=== PATIENT | female | born 2000 | race Caucasian/White ===

== ENCOUNTER 2021-10-06 04:23 | Emergency (ER) | payer BC ==
[2021-10-06 04:51] LABS: HEMOGLOBIN 13.6 gm/dl (12.3-15.3); RED BLOOD COUNT 4.81 M/UL (4.00-5.10); WHITE BLOOD COUNT 12.3 K/UL (4.5-11.0)
[2021-10-06 05:15] LABS: BUN/CREATININE RATIO 13 (0-10)
[2021-10-06] MEDS ORDERED: PROTONIX 40 MG40 M1 PO (08:34)
== END 2021-10-06 10:25 | disposition home or self-care (01) ==
LOC: ER1 04:23
PROVIDERS: Family Medicine
DX: K59.00 Constipation, unspecified (principal); K76.9 Liver disease, unspecified
CPT/HCPCS: 80053; 81001; 83690; 84703; 85025; 99284; Q9967

== ENCOUNTER → 2021-10-31 | Outpatient (CLI) | payer BC ==
[~2021-10-31] MED LIST: PROTONIX 40 MG40 M1 PO
== END ==
LOC: MRI 08:36
DX: R10.9 Unspecified abdominal pain (principal)
CPT/HCPCS: 74181